=== PATIENT | male | born 1955 | race Caucasian/White ===

== ENCOUNTER 2023-03-31 10:53 | Outpatient (OUT) | payer MEDICARE, SELFPAY ==
--- NOTE | 2023-03-31 11:26 | PM.CN ---
Consult Note: HPI Data of Consult Patient: known to practice within the last 3 years Consult date: 03/31/23 Requesting Physician: JONES NATHAN NP Primary Care Provider: Non-Staff Physician, MD Consult Narrative Reason for consult: back pain Narrative: He is here for back pain f/u. He is scheduled for back surgery in April in [place]. He received left knee replacement 02/13. He receives Percocet here only. No new sensorimotor sx or new bowel or bladder issues. Pain is unchanged. No new sx. Pain is left low lumbar area rad to left hip and lower leg. cc:: CC: JONES NATHAN NP Review of Systems ROS Status of ROS 10 or more systems reviewed and unremarkable except as noted in history and below Musculoskeletal Reports: back pain and extremity pain Exam Constitutional Documenting provider has reviewed patient's vital signs: yes Common normals: no apparent distress, oriented x3, healthy appearing, alert and well nourished General appearance: cooperative, comfortable and well developed Orientation/consciousness: Yes awake, Yes oriented to person, Yes oriented to place and Yes oriented to time HENFL Common normals: normocephalic, external ears normal, nasal mucous membranes and turbinates normal and moist oral mucous membranes Respiratory Common normals: normal respiratory effort, no retractions and no use of accessory muscles Effort & inspection: able to speak in complete sentences and symmetric chest movement Back & Pelvis Lumbar spine/lower back: ROM limited, pain with ROM, paraspinal muscle tenderness, straight leg raise negative bilaterally and other soft tissue findings (positive facet load left, negative niurka) Extremity Common normals: normal to inspection, full ROM, normal capillary refill and no pedal edema Other: extremity lower muscle strength left 3/5, right 4/5, sensation intact bilat LE Assessment and Plan Assessment and Plan (1) Lumbar radiculopathy: (2) Lumbar stenosis: Plan surgery as scheduled narcan rx
== END 2023-03-31 10:54 ==
PROVIDERS: Visit Provider Nurse Practitioner
DX: M54.16 Radiculopathy, lumbar region (principal); M48.061 Spinal stenosis, lumbar region without neurogenic claudication
CPT/HCPCS: G0463

== ENCOUNTER 2023-06-29 09:24 | Outpatient (OUT) | payer MEDICARE, SELFPAY ==
--- NOTE | 2023-06-29 09:53 | PM.CN ---
Consult Note: HPI Data of Consult Patient: known to practice within the last 3 years Requesting Physician: Maki Mistry NP Primary Care Provider: Non-Staff Physician, Consult Narrative Reason for consult: f/u Narrative: Patient underwent extensive back surgery and fusion at [facility] 04/25/23. patient presents today for management of chronic back pain. Pain today 03/02. no radiculopathy since surgery. cc:: CC: Maki Mistry NP Review of Systems ROS Status of ROS 10 or more systems reviewed and unremarkable except as noted in history and below Musculoskeletal Reports: back pain Exam Constitutional Documenting provider has reviewed patient's vital signs: yes Common normals: no apparent distress, oriented x3, healthy appearing, alert and well nourished General appearance: cooperative HENMT Common normals: normocephalic, hearing grossly normal bilaterally and moist oral mucous membranes Head and scalp: normocephalic Eye Common normals: PERRL Pupil: PERRL Neck & C-Spine Common normals: full ROM General: normal visual inspection Chest Common normals: inspection of chest normal Respiratory Common normals: normal respiratory effort, no retractions and no use of accessory muscles Back & Pelvis Lumbar spine/lower back: ROM limited and pain with ROM Other: tenderness to pressure, no pain or tenderness with light touch. Patient healing well from spinal sugery. Extremity Common normals: normal to inspection and full ROM Neuro Common normals: oriented x3, CN's II-XII intact bilaterally, moves all extremities, no focal motor deficits, no sensory deficits noted and deep tendon reflexes 2+ bilaterally Sensorium/orientation: alert Motor exam: strength 5/5 throughout and no movement abnormalities noted Psych Common normals: mental status grossly normal, thought process normal, cooperative, affect normal, speech normal and activity/motor behavior normal Speech: normal speech Thought process: normal thought process Results Additional Findings Additional findings: I have checked an OARRS report on this patient today and there are no aberrancies noted in the prescribing history.?? A drug screen was completed and reviewed within the last year, and if there has not been a drug screen completed we ordered one today to monitor higher risk, state monitored pain medication use. As part of providing excellent, safe, comprehensive care, the following was completed at our patient's visit: 1. A medication reconciliation and review to ensure accurate knowledge of current/active medications, including asking our patients to inform us about any [id number] medications or herbal remedies/nutritional supplements/alternative remedies. 2. A review to specifically ensure our patients have had annual screening for: elevated body mass index (BMI), tobacco use, screening for depression, and screening for unhealthy alcohol use. When screening is concerning, patients are provided with education and the specific recommendation to discuss the concerning health issue and treatment options with their primary care provider. Assessment and Plan Assessment and Plan (1) Lumbar stenosis: Assessment and Plan: I have refilled the patient's opioid prescriptions at the above noted dose and schedule.? I feel these medications are improving the patient's quality of life and allow them to tolerate activities of daily living as well as participate in recreational activity.? The patient does not report intolerable side effects. The patient is NOT opioid naive and non-pharmacologic and non-opioid treatment has failed to significantly relieve the patient's pain and improve functionality. The patient has a diagnosis that is related to a somatic or visceral pain etiology. ? ?? I reviewed with the patient the potential risks and side effects with the use of? opioid medications including but not limited to respiratory depression,? sedation, and even . I verified the patient has access to naloxone should? these effects occur. I advised the patient to avoid the use of any other? sedation substances including alcohol, THC, and benzodiazepines while? taking opioid medications due to the risk of compounding side effects and? detrimental outcomes. I reviewed the SLABBING MACHINE OPERATOR, pain treatment agreement, urine? drug screen, and opioid start talking forms. The patient was advised to let? their family know they had Naloxone in case they would need to administer? the medication.? ?? Plan continue follow up care with [facility] continue percocet 5-325mg QID PRN for moderate to severe pain continue acetaminophen PRN not to exceed 3000mg daily dose as discussed narcan discussed and previously prescribed f/u 3 months, sooner if needed
== END 2023-06-29 09:25 | disposition home or self-care (01) ==
LOC: PM 09:25
PROVIDERS: Visit Provider Nurse Practitioner
DX: M48.061 Spinal stenosis, lumbar region without neurogenic claudication (principal)
CPT/HCPCS: G0463

== ENCOUNTER 2023-09-22 10:59 | Outpatient (OUT) | payer MEDICARE, SELFPAY ==
--- NOTE | 2023-09-22 11:26 | PM.CN ---
Consult Note: HPI Data of Consult Patient: known to practice within the last 3 years Requesting Physician: Maki Mistry NP Primary Care Provider: Non-Staff Physician, MD Consult Narrative Reason for consult: f/u Narrative: Patient underwent extensive back surgery and fusion at [facility] 04/25/23. patient presents today for management of chronic back pain. Pain today 01/31. no radiculopathy since surgery. Patient has found benefit to percocet 5-325 QID PRN, would like to restart mobic but needs to speak with surgeon first. cc:: CC: Maki Mistry NP Review of Systems ROS Status of ROS 10 or more systems reviewed and unremarkable except as noted in history and below Musculoskeletal Reports: back pain Meds Home Medications and Allergies Home Medications Medication Instructions Recorded Confirmed Type ascorbic acid (vitamin C) 500 mg 500 mg PO DAILY 07/28/23 07/28/23 History tablet atorvastatin 80 mg tablet 80 mg PO DAILY 07/28/23 07/28/23 History duloxetine 40 mg capsule,delayed 40 mg PO DAILY 07/28/23 07/28/23 History release hydroxyzine pamoate 25 mg capsule 25 mg PO TID 07/28/23 07/28/23 History (Vistaril) lamotrigine 100 mg tablet 100 mg PO DAILY 07/28/23 07/28/23 History (Lamictal) lisinopril 5 mg tablet 5 mg PO DAILY 07/28/23 07/28/23 History meloxicam 15 mg tablet 15 mg PO DAILY 07/28/23 07/28/23 History metoprolol tartrate 25 mg tablet 12.5 mg PO DAILY 07/28/23 07/28/23 History mirtazapine 7.5 mg tablet 7.5 mg PO DAILY 07/28/23 07/28/23 History multivitamin 1 tab PO DAILY 07/28/23 07/28/23 History nitroglycerin 0.4 mg sublingual 0.4 mg sublingual Q5M 07/28/23 07/28/23 History tablet oxycodone-acetaminophen 5 mg-325 1 tab PO QID 07/28/23 07/28/23 History mg tablet (Percocet) oxycodone-acetaminophen 5 mg-325 1 tab PO QID PRN pain #120 tabs 07/28/23 Rx mg tablet (Percocet) pregabalin 200 mg capsule (Lyrica) 200 mg PO TID 07/28/23 07/28/23 History ticagrelor 90 mg tablet (Brilinta) 90 mg PO BID 07/28/23 07/28/23 History tizanidine 4 mg capsule (Zanaflex) 4 mg PO BID PRN muscle spasticity 07/28/23 07/28/23 History trazodone 50 mg tablet 25 mg PO DAILY 07/28/23 07/28/23 History vitamin B complex (B 1 tab PO DAILY 07/28/23 07/28/23 History Complex-Vitamin B12 tablet) oxycodone-acetaminophen 5 mg-325 1 tab PO QID PRN pain #120 tabs 08/31/23 Rx mg tablet (Percocet) Allergies Allergy/AdvReac Type Severity Reaction Status Date / Time egg Allergy Unknown Verified 07/28/23 11:06 tramadol Allergy Unknown Verified 07/28/23 11:06 corn AdvReac Mild Diarrhea Verified 07/28/23 11:06 Milk Containing Products AdvReac Unknown Verified 07/28/23 11:06 (Dairy) robaxin Allergy Unknown Uncoded 07/28/23 11:06 Exam Constitutional Documenting provider has reviewed patient's vital signs: yes Common normals: no apparent distress, oriented x3, healthy appearing, alert and well nourished General appearance: cooperative HENMT Common normals: normocephalic, hearing grossly normal bilaterally and moist oral mucous membranes Head and scalp: normocephalic Eye Common normals: PERRL Pupil: PERRL Neck & C-Spine Common normals: full ROM General: normal visual inspection Chest Common normals: inspection of chest normal Respiratory Common normals: normal respiratory effort, no retractions and no use of accessory muscles Back & Pelvis Lumbar spine/lower back: ROM limited and pain with ROM Other: tenderness to pressure, no pain or tenderness with light touch. Patient healing well from spinal sugery. Extremity Common normals: normal to inspection and full ROM Neuro Common normals: oriented x3, CN's II-XII intact bilaterally, moves all extremities, no focal motor deficits, no sensory deficits noted and deep tendon reflexes 2+ bilaterally Sensorium/orientation: alert Motor exam: strength 5/5 throughout and no movement abnormalities noted Psych Common normals: mental status grossly normal, thought process normal, cooperative, affect normal, speech normal and activity/motor behavior normal Speech: normal speech Thought process: normal thought process Results Additional Findings Additional findings: I have checked an OARRS report on this patient today and there are no aberrancies noted in the prescribing history.?? A drug screen was completed and reviewed within the last year, and if there has not been a drug screen completed we ordered one today to monitor higher risk, state monitored pain medication use. As part of providing excellent, safe, comprehensive care, the following was completed at our patient's visit: 1. A medication reconciliation and review to ensure accurate knowledge of current/active medications, including asking our patients to inform us about any [id number] medications or herbal remedies/nutritional supplements/alternative remedies. 2. A review to specifically ensure our patients have had annual screening for: elevated body mass index (BMI), tobacco use, screening for depression, and screening for unhealthy alcohol use. When screening is concerning, patients are provided with education and the specific recommendation to discuss the concerning health issue and treatment options with their primary care provider. Assessment and Plan Assessment and Plan (1) Lumbar stenosis: (2) Chronic prescription opiate use: Assessment and Plan: I feel these medications are improving the patient's quality of life and allow them to tolerate activities of daily living as well as participate in recreational activity.? The patient does not report intolerable side effects. The patient is NOT opioid naive and non-pharmacologic and non-opioid treatment has failed to significantly relieve the patient's pain and improve functionality. The patient has a diagnosis that is related to a somatic or visceral pain etiology. ? ?? I reviewed with the patient the potential risks and side effects with the use of? opioid medications including but not limited to respiratory depression,? sedation, and even . I verified the patient has access to naloxone should? these effects occur. I advised the patient to avoid the use of any other? sedation substances including alcohol, THC, and benzodiazepines while? taking opioid medications due to the risk of compounding side effects and? detrimental outcomes. I reviewed the CABLE SWAGER, pain treatment agreement, urine? drug screen, and opioid start talking forms. The patient was advised to let? their family know they had Naloxone in case they would need to administer? the medication.? ?? A drug screen was completed within the last year, and no aberrancies were noted regarding their use of controlled substances. The patient understands they are subject to the terms and conditions of the pain contract that they have signed. ? ?? I have checked an OARRS report on this patient today and there are no aberrancies noted in the prescribing history.? Plan UDS today continue current medications pt has f/u with surgeon and would like to discuss restarting mobic f/u 3 months
== END 2023-09-22 11:00 | disposition home or self-care (01) ==
PROVIDERS: Visit Provider Nurse Practitioner
DX: M48.061 Spinal stenosis, lumbar region without neurogenic claudication (principal); Z79.891 Long term (current) use of opiate analgesic
CPT/HCPCS: G0463